=== PATIENT | male | born 1955 | race Caucasian/White ===

== ENCOUNTER → 2023-10-02 09:58 | Outpatient (REF) | payer MEDICARE, OTHER, SELFPAY | LOC: RAD 09:58 | PROVIDERS: ATTENDING PHYSICIAN Internal Medicine Cardiovascular Disease; FAMILY PHYSICIAN Nurse Practitioner Family | DX: I20.89 Other forms of angina pectoris (principal); I10 Essential (primary) hypertension; E78.5 Hyperlipidemia, unspecified | CPT/HCPCS: 75574; Q9967 ==

== ENCOUNTER → 2023-11-05 07:00 | Outpatient (REF) | payer MEDICARE, OTHER, SELFPAY | LOC: DHCBC/DCA 07:00 | PROVIDERS: ATTENDING PHYSICIAN Internal Medicine Cardiovascular Disease; FAMILY PHYSICIAN Nurse Practitioner Family | DX: R59.0 Localized enlarged lymph nodes (principal); I48.0 Paroxysmal atrial fibrillation | CPT/HCPCS: 78452; 93017; A9500 ==

== ENCOUNTER → 2025-02-02 10:24 | Outpatient (REF) | payer MEDICARE, OTHER, SELFPAY | LOC: HWRAD 10:24 | PROVIDERS: ATTENDING PHYSICIAN Nurse Practitioner Family | DX: M54.41 Lumbago with sciatica, right side (principal); M25.551 Pain in right hip | CPT/HCPCS: 72110; 73502 ==

== ENCOUNTER 2025-02-11 11:55 | Emergency (ER) | payer MEDICARE, OTHER, SELFPAY ==
[2025-02-11 11:57] VITALS: BP 172/86
[2025-02-11 13:23] VITALS: BMI 28.5
--- NOTE | 2025-02-11 13:25 | ED.GENMED ---
History of Present Illness
<Elida Garcia PA-C - Last Filed: 02/12/25 14:57>
General
Chief Complaint: Musculo-Skeletal Complaint
Source: patient
Exam Limitations: none
Time Seen by Provider: 02/11/25 13:10
History of Present Illness
History of Present Illness:
69yoM with a history of atrial fibrillation, hypertension, hyperlipidemia, and prostate cancer presenting for evaluation of right groin pain. Patient was standing and twisted yesterday when he felt a pop in his right groin followed by pain. He was
seen at [facility] last night and was diagnosed with a groin strain. No imaging was performed. Patient is presenting because he is unable to bear weight. He has taken ibuprofen and his 's leftover oxycodone with some improvement. He
denies any paresthesias or bowel/bladder issues. Of note, he saw his PCP about 2 weeks ago for low back pain. He had lumbar spine and hip x-rays on 02/02/25 which showed a 6mm calcification adjacent to the right greater trochanter suggestive of
underlying calcific tendinopathy of the gluteal tendons.
Past History
<Elida Garcia PA-C - Last Filed: 02/12/25 14:57>
Past History
ED Past Medical History: Cancer (Prostate), HTN and Hypercholesterolemia
ED Past Surgical History: Orthopedic (Left femur repair, Left foot tendon repair Left ulnar repair) and Urological (Prostatectomy)
Social History
Tobacco: Non-smoker
Alcohol: Occasional
Personal:
Living: with family
Phy Exam
<Elida Garcia PA-C - Last Filed: 02/12/25 14:57>
General Physical Exam
General Presentation: well appearing and no apparent distress
General Skin: warm and dry
General Habitus: normal
General Mental: alert
ENT Exam
ENT Exam: normocephalic
Pulmonary Exam
Pulmonary Exam: no respiratory distress
Gastrointestinal Exam
Gastrointestinal Exam: non tender, soft and non distended
Neurological Exam
Neurological Exam: alert
[place] Coma Scale
Eye Opening: Spontaneous
Verbal Response: Oriented
Motor Response: Obeys Commands
GCS Total Score: 15
Musculoskeletal Exam
Musculoskeletal Exam: other (R hip: Normal to inspection. +Mild tenderness to lateral hip. ROM is normal without pain. 2+ PT pulses bilaterally. )
Skin Exam
Skin Exam: normal color and warm/dry
Psychiatric Exam
Psychiatric Exam: normal mood/affect
<Devon Messina PA-C - Last Filed: 02/11/25 17:34>
[place] Coma Scale
GCS Total Score: 15
Course
<Elida Garcia PA-C - Last Filed: 02/12/25 14:57>
Orders/Labs/Results
Orders:
Orders
02/11/25 13:21
CT Pelvis W/o Iv Contrast Urgent
Comment:
Reason For Exam: R groin/hip pain after injury, unable to ambulate
02/11/25 15:07
Ketorolac [Toradol] 30 mg IM NOW STA
Vital Signs
Initial and Last Documented VS:
Initial Vital Signs
Temp Pulse Resp BP Pulse Ox
98.1 F 68 18 172/86 98
02/11/25 11:57 02/11/25 11:57 02/11/25 11:57 02/11/25 11:57 02/11/25 11:57
Last Documented Vital Signs
Temp Pulse Resp BP Pulse Ox
98.2 F 65 18 164/86 100
02/11/25 17:58 02/11/25 17:58 02/11/25 17:58 02/11/25 17:58 02/11/25 17:58
<Devon Messina PA-C - Last Filed: 02/11/25 17:34>
Orders/Labs/Results
Orders:
Orders
02/11/25 13:21
CT Pelvis W/o Iv Contrast Urgent
Comment:
Reason For Exam: R groin/hip pain after injury, unable to ambulate
02/11/25 15:07
Ketorolac [Toradol] 30 mg IM NOW STA
Vital Signs
Initial and Last Documented VS:
Initial Vital Signs
Temp Pulse Resp BP Pulse Ox
98.1 F 68 18 172/86 98
02/11/25 11:57 02/11/25 11:57 02/11/25 11:57 02/11/25 11:57 02/11/25 11:57
Last Documented Vital Signs
Temp Pulse Resp BP Pulse Ox
98.2 F 65 18 164/86 100
02/11/25 17:58 02/11/25 17:58 02/11/25 17:58 02/11/25 17:58 02/11/25 17:58
<Elida Garcia PA-C - Last Filed: 02/12/25 14:57>
MDM/Problems Addressed
Differential Diagnosis Includes:
69yoM here with R hip pain after twisting and hearing a pop last night. Seen at outside ED for the same and dx with groin strain. Here due to inability to bear weight. He is hypertensive with otherwise normal vitals. R hip is normal to inspection
and ROM is preserved. RLE is neurovascularly intact. Differential diagnosis includes: groin strain, calcific tendonitis, fracture
Initial ED plan: Recent hip x-rays reviewed. Will proceed with CT pelvis to evaluate for occult fracture.
<Elida Garcia PA-C - Last Filed: 02/12/25 14:57>
*Pulse Oximetry
SaO2: 98
Oxygen Mode of Delivery: Room air
<Devon Messina PA-C - Last Filed: 08/14/25 17:34>
*Pulse Oximetry
Patient hypoxic: no
*Critical Care Note
Total Time (30-74mins, 75-104mins- exclusive of procedures): Not Applicable
<Devon Messina PA-C - Last Filed: 02/11/25 17:34>
Update Note
Update Note:
Received care patient upon signout pending CT of pelvis. CT is negative for acute finding. No bony fracture. Suspect soft tissue injury perhaps muscular strain. Patient having difficulty ambulating secondary to the pain. He will use his
crutches. Will prescribe medicine for his pain. Will refer him to orthopedics to further evaluate
ED Attending Note
<Elida Garcia PA-C - Last Filed: 02/12/25 14:57>
-
Portions of this chart may have been created with voice recognition software.� Occasional wrong word or��sound alike� substitutions may have occurred due to the inherent limitations of voice recognition software.
Discharge Plan
Departure
Patient Disposition: Home (Routine Discharge)
Date of Disposition: 02/11/25
Time of Disposition: 17:31
Patient with high blood pressure during this ER visit?: No
Discharge Problem:
Acute hip pain
Instructions: Muscle and Bone Pain (DC)
Prescriptions:
New
prednisone 10 mg Tablet
See Rx Instructions .ROUTE .COMPLEX Qty: 30 0RF
Rx Instructions:
Take By Mouth:
40 mg daily x3 days, 30 mg daily x3 days,
20 mg daily x3 days, 10 mg daily x3 days.
oxycodone-acetaminophen [Percocet] 5-325 mg tablet
1 tab PO TID PRN (Reason: Pain) Qty: 10 0RF
No Action
tadalafil [Cialis] 5 mg Tablet
5 mg PO DAILY PRN (Reason: erectile dysfunction)
rosuvastatin 10 mg Tablet
10 mg PO HS
Eliquis 5 mg Tablet
5 mg PO BID Qty: 60 0RF
metoprolol succinate 25 mg Tablet Extended Release 24 Hr
25 mg PO BID Qty: 60 0RF
Referrals:
Matteo Villa CRNP [Family Provider, Family Practice]
Cheyenne Singh I., DO [Active, Orthopedics]
Activity Restrictions/Additional Instructions:
Use crutches for support when ambulating. Use prescribed medicine as directed. Return if worse otherwise follow up with ortho.
Interventions
Interventions:
*Risk Screen - Suicide Last Done: 02/11/25 12:02
*General Assessment Last Done: 02/11/25 13:23
*Neglect/Abuse Screening Last Done: 02/11/25 12:02
*ED- Fall Risk Assessment Last Done: 02/11/25 13:23
*ED COVID-19 Vaccine History Last Done: 02/11/25 13:23
*Nursing Disposition Last Done: 02/11/25 17:58
ED-Musculoskeletal Assessment Last Done: 02/11/25 13:23
Discharge Date and Time
Discharge Date/Time: 02/11/25 17:50
Print Language: UPPER SORBIAN
[2025-02-11 13:26] VITALS: BP 183/96
[2025-02-11] MEDS: TORADOL 30 MG IM (15:25)
--- NOTE | 2025-02-11 17:56 | EDRN ---
Reviewed discharge instructions with patient. Verbalized understanding. Taken to lobby in wheelchair to wait for his .
[2025-02-11 17:58] VITALS: BP 164/86
== END 2025-02-11 17:50 | disposition home or self-care (01) ==
LOC: EMR 11:55
PROVIDERS: EMERGENCY PHYSICIAN Emergency Medicine; FAMILY PHYSICIAN Nurse Practitioner Family
DX: M25.551 Pain in right hip (principal); E78.00 Pure hypercholesterolemia, unspecified; I10 Essential (primary) hypertension; I48.91 Unspecified atrial fibrillation; Z85.46 Personal history of malignant neoplasm of prostate; Z90.79 Acquired absence of other genital organ(s)
CPT/HCPCS: 99284; 96372; 72192